=== PATIENT | male | born 1940 | race Caucasian/White ===

== ENCOUNTER 2022-02-10 04:23 | Emergency (ER) | payer MEDICARE, OTHER ==
[~2022-02-10] VITALS: Ht 170.2 cm; Wt 50.0 kg
[2022-02-10 04:23] VITALS: BP 166/74
--- NOTE | 2022-02-10 04:46 | PHYS DOC ---
Past History Past Medical History: Arthritis, CAD, CHF, COPD, Depression, Hypertension Past Surgical History: Angioplasty Smoking: Cigarettes, Greater than 1 pack/day General Adult EDM: Chief Complaint: CPR/FULL ARREST HPI: HPI: Pt. per meteorology teacher where called for fall on pt. Pt. reportedly been having frequent falls because of weakness. Pt per meteorology teacher s developed bradycardia and pulse dropped down during their evaluation. Eventually pt was without pulse and a code was started. Patient did receive epinephrine prior to arrival. Compressions, and ventilations by bag mask. Pt reported follows at [facility] pt. [phone]. # Patient is a 81 year old male who presents with history of bradycardia cardiac cardiac arrest. Patient arrived with compressor and bag mask ventilations. Patient occasionally had a pulse with wide complex on monitor. Patient had ACLS protocol with continued compressions and bag mask ventilations. Patient failed to regain a consistent pulse or blood pressure during the course of the code. In discussion with patient's son he advised that he had been on hospice approximately 2 months. Was not to be resuscitated. The patient normally followed at the [facility]. Patient has a history of multiple medical conditions. Had diagnosis of mixed hyperlipidemia, GERD, low back pain chronic, essential hypertension, shoulder arthritis and repair, internal derangement of shoulders, malaise, fatigue, peripheral sensory neuropathy, constipation, dysphagia, colon polyps, hemorrhoids, diverticulitis, hiatal hernia, idiopathic peripheral neuropathy, chronic ankle edema, benign prostatic hyperplasia, actinic keratosis, ingrown toenails, dystrophic nails, dry eye syndrome, bilateral pseudophakia brachia, coronary artery disease, COPD, shortness of breath, fatigue, impaired fasting glucose, nicotine dependence, peripheral neuropathy, allergic rhinitis, malignant neoplasm of skin, cramps, weight loss, malnutrition, DVT , postsurgical pulmonary embolism,.Pt.hx of Percutaneous tra nsluminal coronary artery angioplasty with eluting stents, myocardial infarction's, dermatochalasia, exotropia eyelids, eyelid inflammation, acquired proptosis of the right eye. Pt for last two months having increased weakness, weight loss and frequent f alls. Patient reportedly had been on hospice for the last 2 months. Had been very depressed since the . of a significant partner of 40 years in May.. Patient's last visit to the [facility] requested to remain DNR and DNI. On 01/12/2022, primary care provided by Tanisha WINTER Time of was called at 505.. See code flow sheet for details of attempted resuscitation. Review of Systems: Review of Systems: Review of system not done because of code Family History: Family History: Not currently available Current Medications: Current Meds: See nursing for home meds Allergies: Allergies: Patient had multiple allergies adhesives, colestipol, fish oil, gabapentin, hydrochlorothiazide, lisinopril, lovastatin, niacin, pravastatin, rosuvastatin, and simvastatin Physical Exam: PE: Constitutional: Markedly cachectic morbid in appearance HENT: Normocephalic, fresh laceration on chin, bilateral external ears normal, oropharynx moist, no oral exudates, nose normal. [] Eyes: Fixed and nonreactive to light Neck: JVD bilaterally. Trachea midline Cardiovascular: Pulses only with compressions. Occasional pulse during the code matching a wide-complex beat on monitor Lungs & Thorax: Equal at apex but more pronounced on right with some rhonchi]. Abdomen: Occasional bowel sound, , mild distention stomach Skin: Cold ,pale and poor turgor. Skin tears right elbow. Bilateral knee contusions. Left wrist tear Back: No obvious injury Extremities: Arthritic changes. [Marked muscle wasting. Multiple bony points contusions Neurologic: Nonresponsive to noxious stimuli or procedures during code] EKG: EKG: Only monitor strips most of the idiopathic contractions with no pulses [] Radiology/Procedures: Radiology/Procedures: Not completed during code [] Heart Score: C/O Chest Pain: N/A Risk Factors: Risk Factors: DM, Current or recent (<one month) smoker, HTN, HLP, family history of CAD, obesity. Risk Scores: Score 0 - 3: 2.5% MACE over next 6 weeks - Discharge Home Score 4 - 6: 20.3% MACE over next 6 weeks - Admit for Clinical Observation Score 7 - 10: 72.7% MACE over next 6 weeks - Early Invasive Strategies Course & Med Decision Making: Course & Med Decision Making Pertinent Labs and Imaging studies reviewed. (See chart for details) Son was present in the emergency department and advised that he did not want resuscitation. Active resuscitation stopped. Patient did have occasional pulse without blood pressure. Was pronounced at 505 see code sheet for details. To go to [facility]. Impression: 1. Cardiopulmonary arrest 2. History of bradycardia 3. History of severe COPD 4. History of coronary artery disease 5. Document history of DNR and D[employer] last history and physical 6. Hx. Frequent Fall 7. Hx. Weakness 8. Anemia Hgb 11.0 with Macrocytic Indices MCV 109 9. DM - Glucose 185 [] Dragon Disclaimer: Dragon Disclaimer: This electronic medical record was generated, in whole or in part, using a voice recognition dictation system. Departure Departure: Referrals: PCP,UNKNOWN (PCP) Mimi Disclaimer This chart was dictated in whole or in part using Voice Recognition software in a busy, high-work load, and often noisy Emergency Department environment. It may contain unintended and wholly unrecognized errors or omissions. Dragon Disclaimer This chart was dictated in whole or in part using Voice Recognition software in a busy, high-work load, and often noisy Emergency Department environment. It may contain unintended and wholly unrecognized errors or omissions. RADHA MCDONNELL MD February 10, 2022 04:46
[2022-02-10 05:33] LABS: BASO % 0 % (0-3); EOS % 0 % (0-3); HEMATOCRIT 33.8 % (39.0-53.0); LYMPH # 5.2 x10^3/uL (1.0-4.8); LYMPH % 48 % (24-48); MEAN CORPUSCULAR HEMOGLOBIN 35 pg (25-35); MEAN CORPUSCULAR HGB CONC 32 g/dL (31-37); MEAN CORPUSCULAR VOLUME 109 fL (79-100); MONO # 0.7 x10^3/uL (0.0-1.1); MONO % 6 % (0-9); NEUT # 4.9 x10^3uL (1.8-7.7); NEUT % 45 % (31-73); PLATELET COUNT 191 x10^3/uL (140-400); RED CELL DISTRIBUTION WIDTH 15.3 % (11.5-14.5); WHITE BLOOD COUNT 10.9 x10^3/uL (4.0-11.0)
[2022-02-10 05:42] LABS: CALCIUM 8.4 mg/dL (8.5-10.1); CREATININE 0.9 mg/dL (0.7-1.3); GFR 81.2; POTASSIUM 5.1 mmol/L (3.5-5.1)
[2022-02-10] MEDS ORDERED: ATROPINE 1 MG/10 ML DISP.SYRINGE. ONE (07:00)
[2022-02-10] MEDS ORDERED: EPINEPHrine SYRINGE 1 MG/10 ML SYRINGE. ONE (07:00)
== END 2022-02-10 07:17 ==
LOC: ER 04:23
DX: S01.81XA Laceration without foreign body of other part of head, initial encounter (principal); S51.011A Laceration without foreign body of right elbow, initial encounter; S80.02XA Contusion of left knee, initial encounter; S80.01XA Contusion of right knee, initial encounter; I46.9 Cardiac arrest, cause unspecified; D64.9 Anemia, unspecified; E11.9 Type 2 diabetes mellitus without complications; J44.9 Chronic obstructive pulmonary disease, unspecified; I25.10 Atherosclerotic heart disease of native coronary artery without angina pectoris; M19.90 Unspecified osteoarthritis, unspecified site; I11.0 Hypertensive heart disease with heart failure; I50.9 Heart failure, unspecified; F17.210 Nicotine dependence, cigarettes, uncomplicated; K21.9 Gastro-esophageal reflux disease without esophagitis; E78.2 Mixed hyperlipidemia; R29.6 Repeated falls; W18.39XA Other fall on same level, initial encounter; Y93.89 Activity, other specified; Y92.89 Other specified places as the place of occurrence of the external cause; Y99.8 Other external cause status
CPT/HCPCS: 36415; 80048; 82947; 84484; 85025; 92950; 99291; J0171; J0461